=== PATIENT | female | born 1990 | race Two or more races ===

== ENCOUNTER 2017-09-15 20:58 | Emergency (ER) | payer MEDICAID, OTHER ==
[~2017-09-15] VITALS: Ht 172.7 cm; Wt 63.5 kg
[2017-09-15] MEDS ORDERED: LORAZEPAM 1 MG TABLET ONE (21:24)
[2017-09-15] MEDS ORDERED: LORAZEPAM 1 MG TABLET PO ONE (21:30)
--- NOTE | 2017-09-15 21:30 | NUR ---
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 A/OX 1, SCREAMING AND ALTERED. BREATHING EVEN AND UNLABORED. NO SOB. VITALS STABLE. SAFETY AND COMFORT MEASURES IN PLACE. AWAITING MD ORDERS.
--- NOTE | 2017-09-15 21:31 | NUR ---
PATIENT MEDICATED PER MD ORDERS.
--- NOTE | 2017-09-15 23:45 | NUR ---
Patient discharged to home in stable condition. Written and verbal after care instructions given. Patient verbalizes understanding of instruction.
[2017-09-15 23:55] VITALS: BP 130/68
== END 2017-09-15 23:45 | disposition home or self-care (01) ==
LOC: ER 20:59
DX: F12.929 Cannabis use, unspecified with intoxication, unspecified (principal); F41.9 Anxiety disorder, unspecified; F31.9 Bipolar disorder, unspecified
CPT/HCPCS: 99284; A4606; Z7610